=== PATIENT | female | born 1990 | race Caucasian/White ===

== ENCOUNTER 2023-01-17 15:24 | Emergency (ER) | payer OTHER ==
[~2023-01-17] VITALS: Ht 180.3 cm; Wt 102.1 kg
== END 2023-01-17 18:37 | disposition home or self-care (01) ==
LOC: ER 15:24
DX: H00.015 Hordeolum externum left lower eyelid (principal); Z91.013 Allergy to seafood

== ENCOUNTER → 2024-10-02 | Emergency (ER) | payer OTHER | END | disposition left against medical advice (07) | LOC: ER 14:55 | DX: Z53.21 Procedure and treatment not carried out due to patient leaving prior to being seen by health care provider (principal) ==